=== PATIENT | female | born 1960 | race Caucasian/White ===

== ENCOUNTER 2017-06-14 07:07 | Emergency (ER) | payer BC, SELFPAY ==
[2017-06-14 07:09] VITALS: BP 143/83; PULSE 76; RESP 16; TEMP 36.2; O2SAT 100; BMI 18.8
--- NOTE | 2017-06-14 07:19 | RAD_ITS ---
STUDY: X-RAY - RIGHT KNEE REASON FOR EXAM: Female, 56 years old. Posterior right knee pain after falling last evening. TECHNIQUE: 5 view(s) of the knee. COMPARISON: None. FINDINGS: Normal visualized distal femur. Normal visualized proximal tibia and fibula. Normal proximal tibiofibular articulation. Normal medial femorotibial compartment. Normal lateral femorotibial compartment. Normal patellofemoral articulation. There is no demonstrated joint effusion. The soft tissue structures are unremarkable. RAD/Knee 4 or More Views IMPRESSION: No radiographic evidence for acute fracture. If there is still clinical concern for acute fracture, follow-up radiographs in 7-10 days maybe helpful in evaluating a healing radiographically occult fracture. Electronically Signed: Mee Lopez MD at 8:00 EDT , Service support ,
--- NOTE | 2017-06-14 07:49 | ED.VISSUMM ---
- ER Visit Summary Date of Service: 06/14/17 Chief Complaint: Right knee pain status post fall History of Present Illness: The patient is a 56 F who slipped last evening. She landed on the floor. She thinks she felt a pop. She has no prior history of right lower extremity injury. She denies head injury. Denies neck pain. She denies paresthesia, anesthesia motor weakness. Her only complaint is pain right knee and popliteal fossa please read written note for complete detail Physical Examination: Blood pressure is elevated 143/83. The right knee is swollen in comparison to the left. The patella is not ballotable. There is an effusion. She is able to extend to 170? and flex to 90?. She complains of pain at 110?. There is mild discomfort popliteal fossa with palpation. There is no palpable mass or wart. Varus and valgus stress testing causes pain laterally with slight laxity of the LCL compared to the uninjured side. Arcenio's test was negative. Modified Lashonda's test is positive for pain and click laterally. DP and PT pulses are palpable. There is no neurologic findings. Test Results: 4 view x-ray of the knee was obtained and is positive for an effusion. There is no fracture noted. Emergency Department Course and Treatment: Patient was offered pain medicine which she declined. X-ray was obtained to evaluate for fracture. Treatment Plan: Patient was referred to Dr. Derrick Desouza since she has not seen an orthopedic surgeon and he is operations trainer for patients without an established orthopedic surgeon. Since patient is unable to bear weight she was given crutches to bear weight as tolerated. Disposition: Discharged home with family member Impression: Traumatic effusion right knee secondary to meniscal tear and LCL strain initial encounter This note was generated with [employer] dictation software. It may contain incorrect words, spelling, and punctuation that were not noted in review of the chart prior to signing ED Disposition - Plan for ED Patient: Disposition: Home or Assisted Living Chief Complaint: Lower Extremity Injury Instructions: ED Meniscal Injury Knee Poss Referrals: Jose Chappell III, MD [Primary Care Provider] - Derrick Desouza DO [STAFF PHYSICIAN] - 5-7 Days Additional Instructions: Bear weight as tolerated. Call Dr. Desouza's office for follow-up within the next 5-7 days.
--- NOTE | 2017-06-14 07:55 | ED.DCSUM_ITS ---
- ER Visit Summary Date of Service: 06/14/17 Chief Complaint: Right knee pain status post fall History of Present Illness: The patient is a 56 F who slipped last evening. She landed on the floor. She thinks she felt a pop. She has no prior history of right lower extremity injury. She denies head injury. Denies neck pain. She denies paresthesia, anesthesia motor weakness. Her only complaint is pain right knee and popliteal fossa please read written note for complete detail Physical Examination: Blood pressure is elevated 143/83. The right knee is swollen in comparison to the left. The patella is not ballotable. There is an effusion. She is able to extend to 170? and flex to 90?. She complains of pain at 110?. There is mild discomfort popliteal fossa with palpation. There is no palpable mass or wart. Varus and valgus stress testing causes pain laterally with slight laxity of the LCL compared to the uninjured side. Arcenio 's test was negative. Modified Lashonda's test is positive for pain and click laterally. DP and PT pulses are palpable. There is no neurologic findings. Test Results: 4 view x-ray of the knee was obtained and is positive for an effusion. There is no fracture noted. Emergency Department Course and Treatment: Patient was offered pain medicine which she declined. X-ray was obtained to evaluate for fracture. Treatment Plan: Patient was referred to Dr. Derrick Desouza since she has not seen an orthopedic surgeon and he is contracts director for patients without an established orthopedic surgeon. Since patient is unable to bear weight she was given crutches to bear weight as tolerated. Disposition: Discharged home with family member Impression: Traumatic effusion right knee secondary to meniscal tear and LCL strain initial encounter This note was generated with [employer] dictation software. It may contain incorrect words, spelling, and punctuation that were not noted in review of the chart prior to signing ED Disposition - Plan for ED Patient: Disposition: Home or Assisted Living Chief Complaint: Lower Extremity Injury Instructions: ED Meniscal Injury Knee Poss Referrals: Jose Chappell III, MD [Primary Care Provider] - Derrick Desouza DO [STAFF PHYSICIAN] - 5-7 Days Additional Instructions: Bear weight as tolerated. Call Dr. Desouza's office for follow-up within the next 5-7 days.
[2017-06-14 08:42] VITALS: BP 121/78; PULSE 71; RESP 14; O2SAT 97
== END 2017-06-14 08:42 | disposition home or self-care (01) ==
PROVIDERS: Emergency Provider Emergency Medicine; Family Provider Family Medicine; PCP Family Medicine
DX: S83.206A Unspecified tear of unspecified meniscus, current injury, right knee, initial encounter (principal); S83.421A Sprain of lateral collateral ligament of right knee, initial encounter; W01.0XXA Fall on same level from slipping, tripping and stumbling without subsequent striking against object, initial encounter; Y93.9 Activity, unspecified; Y92.9 Unspecified place or not applicable; Y99.9 Unspecified external cause status; R03.0 Elevated blood-pressure reading, without diagnosis of hypertension
CPT/HCPCS: 73564; 99283

== ENCOUNTER → 2023-08-08 | Outpatient (CLI) | payer BC, SELFPAY ==
[2023-08-14 06:06] LABS: Banana 0.24 kU/L (Class 0/I); Clam <0.10 kU/L (Class 0); Codfish <0.10 kU/L (Class 0); Corn 0.11 kU/L (Class 0/I); Crab <0.10 kU/L (Class 0); Egg, White 0.38 kU/L (Class I); Lobster <0.10 kU/L (Class 0); Milk (Cow) 0.25 kU/L (Class 0/I); Orange <0.10 kU/L (Class 0); Peanut 0.27 kU/L (Class 0/I); SCALLOP <0.10 kU/L (Class 0); SESAME SEED 0.29 kU/L (Class 0/I); Shrimp <0.10 kU/L (Class 0); Soybean <0.10 kU/L (Class 0); Wheat 0.43 kU/L (Class I)
== END | disposition home or self-care (01) ==
PROVIDERS: PCP Internal Medicine; Referring Provider Otolaryngology; Visit Provider Otolaryngology
DX: T78.40XA Allergy, unspecified, initial encounter (principal); X58.XXXA Exposure to other specified factors, initial encounter
CPT/HCPCS: 36415; 86003